=== PATIENT | female | born 1960 | race Caucasian/White ===

== ENCOUNTER 2021-02-02 14:30 | Outpatient (CLI) | payer BC | END 2021-02-02 23:59 | disposition home or self-care (01) | LOC: RAD 14:30 | DX: M48.07 Spinal stenosis, lumbosacral region (principal); M16.12 Unilateral primary osteoarthritis, left hip; Z68.28 Body mass index [BMI] 28.0-28.9, adult | CPT/HCPCS: 72148 ==